=== PATIENT | female | born 1945 | race Caucasian/White ===

== ENCOUNTER 2018-03-12 10:19 | Outpatient (CLI) | payer MEDICARE, OTHER ==
--- NOTE | 2018-03-12 11:25 | RAD ---
LEFT ANKLE THREE VIEWS: History: Pain. Comparison: None. FINDINGS: There is mild medial ankle mortise narrowing. This is chronic in nature. No acute displaced fracture or malalignment. IMPRESSION: No acute fracture or malalignment. POS: [facility]ALI
--- NOTE | 2018-03-12 11:28 | RAD ---
LEFT KNEE FOUR VIEWS: History: 72-year-old female with history of left knee and ankle pain. FINDINGS: Mild degenerative changes. No fracture or dislocation. IMPRESSION: Unremarkable left knee. No fracture or dislocation. POS: [facility]
== END 2018-03-12 10:20 | disposition home or self-care (01) ==
LOC: NAV RAD 10:19
PROVIDERS: ATTEND Internal Medicine
DX: G62.89 Other specified polyneuropathies (principal)

== ENCOUNTER 2021-02-16 09:10 | Outpatient (CLI) | payer MEDICARE, OTHER | END 2021-02-16 09:11 | disposition home or self-care (01) | LOC: NAV RAD 09:10 | PROVIDERS: ATTEND Family Medicine | DX: M79.671 Pain in right foot (principal); R20.2 Paresthesia of skin; M47.816 Spondylosis without myelopathy or radiculopathy, lumbar region; M51.36 Other intervertebral disc degeneration, lumbar region; M77.31 Calcaneal spur, right foot | CPT/HCPCS: 72100 ==

== ENCOUNTER 2021-04-27 08:42 | Outpatient (CLI) | payer MEDICARE, OTHER | END 2021-04-27 08:43 | disposition home or self-care (01) | LOC: NAV RAD 08:42 | PROVIDERS: ATTEND Nurse Practitioner Adult Health | DX: R07.81 Pleurodynia (principal); S22.31XA Fracture of one rib, right side, initial encounter for closed fracture; W18.30XA Fall on same level, unspecified, initial encounter ==

== ENCOUNTER 2023-01-31 21:44 | Emergency (ER) | payer MEDICARE, OTHER ==
[~2023-01-31 21:44] MED LIST: Iopamidol 370 76% 100 ML VIAL ONE
[2023-01-31] MEDS ORDERED: Ondansetron PF 4 MG/2 ML Vial ONE ×2 (22:08→22:59)
[2023-01-31] MEDS ORDERED: Morphine 4 MG/ML VIAL ONE (22:18)
[2023-01-31] MEDS ORDERED: Sodium Chloride 0.9% 1,000 ML ONE (22:18)
[2023-01-31 22:31] LABS: #Basophils 0.1 thou/uL (0.0-0.2); #Eosinphils 0.2 thou/uL (0.0-0.7); #Lymphocytes 1.7 thou/uL (1.20-3.40); #Monocytes 0.5 thou/uL (0.11-0.59); #Neutrophils 4.2 thou/uL (1.40-6.50); %Basophils 0.9 % (0.0-1.0); %Eosinophils 2.3 % (0.0-10.0); %Lymphocytes 25.9 % (21.0-51.0); %Monocytes 7.4 % (0.0-10.0); %Neutrophils 63.5 % (42.0-75.0); Hemoglobin 15.1 g/dL (12.0-16.0); Mean Corpuscular Hemoglobin 28.9 pg (27.0-31.0); Mean Corpuscular Volume 87.5 fl (78.0-98.0); Mean Platelet Volume 11.7 fL (7.4-10.4); Platelet Count 142 10x3/uL (130-400); RBC Distribution Width 12.4 % (11.5-14.5); Red Blood Cell (RBC) Count 5.21 mill/uL (4.20-5.40); White Blood Cell (WBC) Count 6.7 10x3/uL (4.8-10.8)
[2023-01-31 22:43] LABS: ALT (SGPT) 18 U/L (8-55); AST (SGOT) 17 U/L (5-34); Albumin 4.5 g/dL (3.4-4.8); Alkaline Phosphatase 66 U/L (40-110); Anion Gap 15 mmol/L (10-20); BUN (Urea Nitrogen) 17 mg/dL (9.8-20.1); Bilirubin, Total 0.3 mg/dL (0.2-1.2); Calc. Creatinine Clearance 0 mL/min (70-130); Calcium 9.8 mg/dL (7.8-10.44); Carbon Dioxide 25 mmol/L (23-31); Chloride 99 mmol/L (98-107); Estimated GFR 79; Globulin 2.8 g/dL (2.4-3.5); Glucose 111 mg/dL (83-110); Lipase 23 U/L (8-78); Protein, Total 7.3 g/dL (5.8-8.1); Sodium 135 mmol/L (136-145)
[2023-01-31 22:52] LABS: Bilirubin Negative (Negative); Blood, Urine Negative (Negative); Clarity Clear (Clear); Glucose, Urine (Dipstick) Negative (Negative); Ketone, Urine Negative (Negative); Leukocyte Trace (Negative); Nitrite Negative (Negative); Protein, Urine (Dipstick) Negative (Neg-Trace); Urobilinogen 0.2 mg/dL (Less than 2); pH, Urine 5.5 (5.0-9.0)
[2023-01-31 22:53] LABS: Bacteria/HPF Rare-Few HPF (None Seen); CAUTI Indications for Culture Pelvic or flank pain; RBC/HPF None Seen HPF (0-3); Specific Gravity, Urine 1.022 (1.002-1.036)
[2023-01-31 22:54] LABS: Urine Culture Reflex No No
[2023-01-31] MEDS ORDERED: Ketorolac Tromethamine 30 MG/ML VIAL ONE (22:59)
[2023-01-31] MEDS ORDERED: fentaNYL 50 mcg/mL 1 mL Vial ONE (23:27)
[2023-02-01] MEDS ORDERED: Lorazepam 2 MG/ML VIAL ONE (00:26)
[2023-02-01] MEDS ORDERED: fentaNYL 50 mcg/mL 1 mL Vial ONE (00:26)
== END 2023-02-01 01:50 | disposition short-term general hospital (02) ==
LOC: NAV ERS 21:44
DX: K56.609 Unspecified intestinal obstruction, unspecified as to partial versus complete obstruction (principal)
CPT/HCPCS: 71045; 74177; 80053; 81001; 83605; 83690; 84484; 85025; 93005; 96361; 96374; 96375; 96376; 99285; J3010 ×2; J1885; J2060; J2270; J2405; J7050; Q9967

== ENCOUNTER 2024-05-26 17:25 | Emergency (ER) | payer MEDICARE, OTHER ==
[2024-05-26] MEDS ORDERED: Boostrix 0.5 ML (Tdap) VIAL (>/=7 yrs of age) ONE (18:04)
[2024-05-26] MEDS ORDERED: Bacitracin 1 PK ONE (18:04)
== END 2024-05-26 18:30 | disposition home or self-care (01) ==
LOC: NAV ERS 17:25
DX: S61.211A Laceration without foreign body of left index finger without damage to nail, initial encounter (principal); Z23 Encounter for immunization; W26.0XXA Contact with knife, initial encounter
CPT/HCPCS: 12001; 90471; 90715

== ENCOUNTER 2024-10-22 18:15 | Emergency (ER) | payer MEDICARE, OTHER | END 2024-10-22 19:00 | disposition home or self-care (01) | LOC: NAV ERS 18:15 | DX: F41.9 Anxiety disorder, unspecified (principal) | CPT/HCPCS: 99283 ==